=== PATIENT | male | born 1970 | race Caucasian/White ===

== ENCOUNTER → 2020-08-04 | Outpatient (CLI) | payer BC ==
--- NOTE | 2020-08-04 19:16 | REP ---
INDICATION: PAIN IN RT KNEE. COMPARISON: None TECHNIQUE: Sagittal spin-echo proton density, T2 STIR and T2 FLASH. Coronal spin-echo proton density and fat suppressed proton density. Axial fat suppressed proton density. FINDINGS: Mild grade 1 signal changes are seen in the anterior and posterior horns of the medial meniscus. Similar findings to a lesser degree are seen in the anterior-posterior runs of the lateral meniscus. The anterior and posterior cruciate ligaments are intact the quadriceps and patellar tendons are intact. The medial and lateral collateral ligaments are intact. The medial and lateral patellar retinacula are intact. There is thinning and irregularity of all articular cartilages. There is a slight joint effusion. There is no Lee's cyst. There is a 1.5 cm sized unicameral cyst in the proximal tibial metaphysis near the midline. There is mild tricompartmental marginal osteophytosis. In the lateral femoral condyle there is a 1.1 cm sized smoothly marginated defect with no T2 hyper signal. IMPRESSION: 1. Meniscal degenerative changes as described above. 2. 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 3. 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 4. Unicameral bone cyst proximal tibia as described above. 5. There is a slight joint effusion. 6. Other findings as described above. <Electronically signed by Emmanuel Askew > 08/04/201912
== END ==
LOC: M RAD 16:25
PROVIDERS: ATTEND Orthopaedic Surgery
DX: M25.561 Pain in right knee (principal)